=== PATIENT | female | born 1940 | race African-American/Black ===

== ENCOUNTER 2017-01-07 12:53 | Inpatient (IN) ==
[2017-01-07] MEDS ORDERED: GLUCAGON 1 MG VIAL IM PRN (12:55)
[2017-01-07] MEDS ORDERED: DEXTROSE 50% 25 GM/50 ML VIAL IV PRN (12:55)
--- NOTE | 2017-01-07 13:04 | Pulmonology History & Physical ---
History of Present Illness Chief complaint: Abnormal MRI; CVA History of present illness: Asher Kinney, ANP-BC, GNP-BC, acting as scribe for Dr. Delvin Marshall Mrs. Sweeney is a 76 year old black female who was seen [facility] by Dr. Lundberg. The patient has had more dizziness and gait instability. He scheduled her for an MRI of the brain this morning and it showed findings most suggestive of a recent infarct involving the left anterior cerebellar hemisphere and left cerebellar peduncle. There was a minimal amount of enhancement present in the cerebellar component. With these findings, Dr. Lundberg contacted Dr. Marshall for hospitalization. The patient denies any increased shortness of breath or dyspnea on exertion. She does report gait instability which is been worsening over the past couple of weeks with recurrent falls. She denies any cardiac angina or palpitations. No reported dysphasia or reflux. No bleeding from any site. No change in bowel or bladder habits. All other systems were reviewed and were negative. Allergies: None Home medications: See list Past medical history: Jeb's hospitalization 11/01/2016 through 11/02/2016 under the care of the hospitalist. Patient was admitted with slurred speech. Jeb's hospitalization 02/27/2012 through 03/01/[address] Feliciano secondary to an acute TIA, dizziness, and findings of old stroke in 2 arterial hernandez. Jeb's hospitalization 11/19/2005 through 11/21/2005 under the care of Dr. Solano for dysphasia, diabetes mellitus which was uncontrolled, COPD, and hyperlipidemia. History is also notable for hypertension, history of acute NC, history of CVA, and diabetes mellitus. Family history: Positive for an unknown type of cancer in her father, colon cancer in her son, and her mother was an alcoholic. Social history: The patient is . Her 's name is Arvind. She is a lifetime non-smoker. She does not use alcohol. Past procedures: MRI of the brain done 01/07/2017 showed findings suggestive of a recent infarct involving the left anterior cerebellar hemisphere and left cerebellar peduncle. There is minimal amount of enhancement present in the cerebellar component likely due to reperfusion, however, subsequent exam was recommended in several weeks to make sure the enhancement resolved to exclude an underlying mass. There is an old infarct in the posterior aspect of the left cerebellar hemisphere, moderate changes of chronic microvascular ischemia in the periventricular white matter, and left lateral CSF collection likely an arachnoid cyst. CT of the head done 12/25/2016 showed no acute intracranial abnormality. MRI of the brain done 11/02/2016 showed no acute intracranial pathology. There was a 20 mm probable arachnoid cyst overlying the left posterior parietal vertex that was extra-axial and benign. There were also 2 small old lacunar infarcts of the left cerebellar hemisphere, chronic small vessel ischemic changes in the deep white matter, and generalized atrophy. CT of the brain done 11/01/2016 showed no acute intracranial pathology. Generalized atrophy and changes consistent with microvascular disease. No change when compared to CT done 06/10/2016. CT of the brain done 06/10/2016 showed no acute intracranial pathology. When compared to scans done 02/27/2012, there is stable generalized atrophy and relatively extensive chronic small vessel ischemic change. The encephalomalacia of the left parietal vertex was unchanged. There is mild frontal sinus disease. Carotid Dopplers done 2015 showed no hemodynamically significant stenosis of either ICA origin. Carotid ultrasound done 02/27/2012 showed slightly echolucent plaque within the left carotid artery bulb. There is no associated elevated peak systolic velocity. Less than 50% stenosis was estimated bilaterally. CT of the brain done 02/27/2012 showed stable interval appearance of the brain when compared to study done 02/01/2008. There is no evidence of acute intracranial pathology, but paranasal sinus disease was noted. Carotid ultrasounds done 02/01/2008 showed mild amount of plaque with less than 50% stenosis bilaterally. CT of abdomen and pelvis done 02/01/2008 showed minuscule amount of fluid in the lower pelvis and incomplete bowel opacification without a focal abnormality. CT of the brain done 02/01/2008 showed small chronic cortical infarct in the left parietal lobe and mild paranasal sinus disease. X-ray of the cervical spine done 2007 showed minimal to moderate degenerative changes in the cervical spine with associated bilateral foraminal stenosis. No definite fracture dislocation was identified. CT of the lower extremities done 11/10/1997 showed an ill-defined asymmetric soft tissue abnormality in the left lower leg. This projected just medial to the upper tibia. There was no abnormal enhancement or associated osseous pathology. There did not appear to be any involvement of the musculature and was felt to represent a probable benign soft tissue finding as could be seen with an infectious process and/or resolving hematoma rather than a tumor. Laboratory: White count is 8249.8% segs, 39.5% lymphs, and 6.0% monos; H&H 11.9/ 35.9 with normal indices and normal red blood cell distribution with; platelet count 191,000; creatinine 1.00, BUN 19, sodium 137, potassium 3.9, magnesium 1.8 ; liver function tests within normal limits; calcium 9.9, albumin 3.4, total protein 7.1; TSH and free T4 normal at 2.510 and 1.41 respectively Home Medications Medication Instructions Recorded Confirmed Type Amlodipine Besylate 5 mg PO DAILY 11/01/16 01/07/17 History Aspirin [Aspirin EC] 81 mg PO DAILY 11/01/16 01/07/17 History glipiZIDE [Glipizide] 10 mg PO BID 11/01/16 01/07/17 History Glimepiride [Glimepiride] 4 mg PO DAILY 12/25/16 01/07/17 History Losartan/Hydrochlorothiazide 1 tablet PO DAILY 12/25/16 01/07/17 History [Losartan-Hctz 50-12.5 mg Tab] Meclizine [Antivert] 25 mg PO TID #14 tablet 12/25/16 01/07/17 Rx Amoxicillin Cap/Tab 875 mg PO Q12HR 01/07/17 01/07/17 History Methocarbamol Tab [Robaxin Tab] 750 mg PO TID 01/07/17 01/07/17 History Promethazine Tab [Phenergan Tab] 25 mg PO Q4H 01/07/17 01/07/17 History Allergies Allergy/AdvReac Type Severity Reaction Status Date / Time No Known Allergies Allergy Unverified 11/01/16 19:10 Medical,Surgical,& Family Hx - Medical History Cardio: History of: Hypertension, NC Neurology: History of: Cerebrovascular Accident Endocrine: History of: Diabetes Mellitus (NIDDM) - Surgical History Orthopedic Surgeries: Surgical HX of;: Orthopedic Surgery - Family History Family History: Reports;: Family Cancer (Father, son with colon cancer), Family Psychiatric Problems (Mother with alcohol abuse) - Social History Smoking Status: Never smoker Results - Labs CBC & BMP: 01/08/17 05:01 01/08/17 05:01 Exam (Pulmonay) H&P - Constitutional Exam: Psych: Oriented x 3; a pleasant and cooperative patient HEENT: Pupils, irises, sclera, conjunctiva, and eyelids are normal. The face is symmetrical without rash or masses. Lips, tongue, buccal mucosa, soft and hard palates, and pharynx are WNL Neck: Symmetrical. Thyroid was not palpated. Lymphatics: No submandibular, cervical, or supraclavicular adenopathy Chest: Symmetrical without wheeze, rhonchi or rales Breasts: Deferred CV: Regular without murmur, rub, or gallop Arterial: Carotids with a fair upstroke. There is no bruit. Upper extremity pulses are palpable. Lower extremity pulses are non-palpable, but I see no evidence of ischemia. Venous: Exam of the neck, upper, and lower extremities is normal Abd: No appreciable organomegaly, masses, tenderness, or bruit; Bowel sounds are positive 4; The aorta was not palpated /Rectal: Deferred Extremities: No clubbing, cyanosis, edema, or obvious DVT Skin: No cancerous or infectious lesions of the exposed, examined skin; the perineal area was not examined M/S: Age appropriate loss of the normal curvature of the cervical, thoracic, and lumbar spine Neurological: No focal weakness noted, but the patient is unsteady with her gait The remainder of the exam was noncontributory. Impression: #1: Acute CVA of the left anterior cerebellar distribution with associated gait abnormality #2: Diabetes mellitus #3: Hypertension #4: History of old CVA #5: History of acute NC #6: See past history Plan: #1: Admit to inpatient #2: Consult Dr. Caro #3: Fasting lipid profile in the morning #4: Check hemoglobin A1c #5: Consult physical therapy and Occupational Therapy #6: Echocardiogram #7: See orders
--- NOTE | 2017-01-07 14:02 | EKG Report ---
Stationary ECG Study [facility] Test Date: 01/07/2017 2:01:20 PM Pat Name: SHAYNE NORRIS Department: Room: 544 Gender: F Supervisor [employer]: : 1940 Requested by: Asher Kinney Order Number: [id number] Reading MD: ARIANNA CAMARA Intervals Union Rate: 85 P: 81 NH: 162 QRS: 10 QRSD: 96 T: -8 QT: 350 QTc: 393 Interpretive Statements (LAURA CAMARA TO INTERP) SINUS RHYTHM Normal axis. Nonspecific STs and T's. No acute changes. Electronically Signed On 01-15-17 09:32:37 CDT by ARIANNA CAMARA [email or web address]
--- NOTE | 2017-01-07 14:30 | Neurology Consult Note ---
History of Present Illness History of present illness: Ms. Sweeney is a 76 year old right-handed -[place] lady with past medical history significant for diabetes, hypertension admitted to the hospital with increasing gait difficulties and balance problem. This is been going on for last 2 weeks or so. Never had any similar symptoms before. She reported she can swallow okay and his speech is fluent. However she just cannot balance herself. She is falling a lot. She saw Dr. Lundberg as an outpatient who ordered an MRI of the brain which revealed subacute to acute left anterior cerebellar distribution infarct. Patient was taking aspirin at home. Home Medications Medication Instructions Recorded Confirmed Type Amlodipine Besylate 5 mg PO DAILY 11/01/16 12/25/16 History Aspirin [Aspirin EC] 81 mg PO DAILY 11/01/16 12/25/16 History glipiZIDE [Glipizide] 10 mg PO BID 11/01/16 12/25/16 History Glimepiride [Glimepiride] 4 mg PO DAILY 12/25/16 12/25/16 History Losartan/Hydrochlorothiazide 1 tablet PO DAILY 12/25/16 12/25/16 History [Losartan-Hctz 50-12.5 mg Tab] Meclizine [Antivert] 25 mg PO TID #14 tablet 12/25/16 Rx Allergies Allergy/AdvReac Type Severity Reaction Status Date / Time No Known Allergies Allergy Unverified 11/01/16 19:10 12 point system: reviewed and no additional remarkable complaints except as stated Medical,Surgical,& Family Hx - Medical History Cardio: History of: Hypertension, ID Neurology: History of: Cerebrovascular Accident Endocrine: History of: Diabetes Mellitus (NIDDM) - Surgical History Orthopedic Surgeries: Surgical HX of;: Orthopedic Surgery - Family History Family History: Reports;: Family Cancer (Father, son with colon cancer), Family Psychiatric Problems (Mother with alcohol abuse) - Social History Smoking Status: Never smoker Frequency of Alcohol Use: None Type of Drug Use: None Exam - Constitutional Vitals: Period Temp Pulse Resp BP Sys/Maurer Pulse Ox Last 24 Hr 98.1 F 83 18 152/84 96 Exam: GENERAL: Patient is in no acute distress. NECK: Neck is supple. There is no JVD. No carotid bruits present. No thyroid masses. CVS: First and second heart sounds are normal. There is no S3 present. Regular rate and rhythm. RESPIRATORY: Lungs are clear to auscultation without any rales or rhonchi. ABDOMEN: Soft and non-tender. Bowel sounds are present. There is no hepatosplenomegaly. EXT: There is no palpable edema. Peripheral pulses are present. Skin: No rashes Central Nervous system: General: Alert, awake and Oriented x 3 Speech: Fluent Comprehension: Intact and normal Facial expressions: Normal Cranial Nerves: CN1/Olfactory: Normal CN II/ Optic: Normal, Visual Wayne unreliable CN III, and : NATALIE & EOMI CN V: Normal & intact CN VII: face is symmetric CNVIII: Normal CN XI/X/XI/XII: Intact and Normal Motor: Bulk and Tone is normal. Strength in the right 3-4/5 Strength in the left 3-4/5 Sensory: Grossly intact for all the modalities of PP, LT and temp sense Reflexes: 1+ and symmetrical Cerebellar function: Dysmetria upon finger to nose and heel to pathak testing in the left. Toes: Equivocal Gait: Markedly ataxic gait requiring max assist at this time Assessment and Plan (1) Acute CVA (cerebrovascular accident) Status: Acute Assessment and plan: Stop aspirin. Eliquis 5 mg p.o. twice daily Echocardiogram Lipid profile MRA [facility] Consult PT and OT Consult TMR Current Visit: Yes
--- NOTE | 2017-01-07 15:03 | XRay Report ---
2 view chest. Indication: Shortness of breath. The heart is normal in size. There is mild stable uncoiling of the thoracic aorta. 2 calcified granulomas are seen in the left upper lobe. There is atelectasis present at the left lung base. No consolidation, pneumothorax, or pleural effusion. Degenerative changes are present within the spinal column. There is gaseous distention of bowel with scattered air-fluid levels. Impression: Left basilar atelectasis. Gaseous distention of bowel. PROCEDURE INTERPRETED AT [facility] [place] DEPARTMENT OF RADIOLOGY Final Report Signed by: Dr. Juliane Morrissey
[2017-01-07 15:27] LABS: Basophils % 0.1 % (0.0-0.8); Eosinophils # 0.4 10*3/uL (0.0-0.87); Eosinophils % 4.4 % (0.00-10.9); Hematocrit 35.9 VOL% (35.7-47.0); Hemoglobin 11.9 GM/DL (12.0-16.0); Immature Granulocytes % 0.2 %; Immature Granulocytes Absolute 0.02 #; Lymphocytes # 3.2 10*3/uL (1.4-4.0); Lymphocytes % 39.5 % (21.3-54.2); Mean Corpuscular HGB Conc 33.1 GM/DL (32-36); Mean Corpuscular Hemoglobin 31 PG (27-34); Mean Corpuscular Volume 92.5 FL (87-102); Mean Platelet Volume 11.9 FL (9.6-12.0); Monocytes # 0.5 10*3/uL (0.11-0.8); Neutrophils # 4.1 10*3/uL (1.4-7.4); Neutrophils % 49.8 % (38.7-73.9); Platelet Count 181 T/CUMM (130-400); Red Blood Count 3.88 MC/CUMM (3.8-5.5); Red Cell Distribution Width 12.9 % (9.3-17.3); White Blood Count 8.2 T/CUMM (4-12)
--- NOTE | 2017-01-07 15:39 | Ultrasound Report ---
Exam: US carotid duplex BI Date: 01/07/2017 12:59 PM Indication: CVA Comparison 06/10/2016 Findings: Grayscale color flow analysis and spectral analysis imaging was performed with image stored and captured. Right Flow velocities centimeters per second Common carotid artery: 59 Proximal ICA: 42 Distal ICA: 54 External carotid artery: 59 Vertebral artery: 65 ICA/CCA ratio: 0.9 Measurements in millimeters Distal ICA: 4.6 Left: Flow velocities centimeters per second Common carotid artery: 75 Proximal ICA: 29 Distal ICA: 36 External carotid artery: 59 Vertebral artery: 56 ICA/CCA ratio: 0.5 Measurements in millimeters Distal ICA: 5.8 Normal color flow present. Mild intimal hyperplasia and minimal plaque present with triphasic waveforms present. No spectral broadening Impression: 1. 0-15% stenosis bilaterally Today studies were performed utilizing indirect NASCET criteria The ultrasound images were stored and captured PROCEDURE INTERPRETED AT [facility] DEPARTMENT OF RADIOLOGY Final Report Signed by: Dr. Delvin Malin
[2017-01-07 16:01] LABS: Alanine Aminotransferase 13 U/L (13-56); Albumin 3.4 G/DL (3.4-5.0); Alkaline Phosphatase 69 U/L (45-117); Aspartate Amino Transferase 10 U/L (0-37); Bilirubin,Total < 0.39 MG/DL (0.2-1.0); Blood Urea Nitrogen 19 MG/DL (7-18); Calcium 9.9 MG/DL (8.5-10.1); Glucose 181 MG/DL (74-106); Magnesium 1.8 MG/DL (1.8-2.4); Osmolality,Calculated 279.8 MOS/KG (273-304); Potassium 3.9 MMOL/L (3.5-5.1); Sodium 137 MMOL/L (136-145); Total Protein 7.1 G/DL (6.4-8.3)
--- NOTE | 2017-01-07 16:35 | Magnetic Resonance Report ---
Exam: MR angio head wo brandon (MARIA INES) Date: 01/07/2017 2:32 PM Indication: CVA Comparison: MRI brain earlier today Technical 1.5 Linda 3-D slab imaging without gadolinium enhancement. Findings: The posterior cerebral P1 and P2 segments and the anterior cerebral A1 and A2 segments are demonstrated without abnormality the middle cerebral M1 and M2 bifurcation trifurcation regions are intact. The internal carotid arteries reveal some mild dolichoectasia. The right and left vertebral arteries are demonstrated with mild narrowing of the distal left vertebral. The posterior communicating arteries are not well demonstrated. The anterior communicating artery is also poorly seen Impression: 1. No high-grade stenosis or occlusion or aneurysm clearly demonstrated on today's study. 2. Mild dolichoectasia PROCEDURE INTERPRETED AT [facility] DEPARTMENT OF RADIOLOGY Final Report Signed by: Dr. Delvin Malin
[2017-01-07] MEDS ORDERED: ACETAMINOPHEN 325 MG TABLET PO PRN (16:52)
[2017-01-07] MEDS: DEXAMETHASONE 4 MG/1 ML VIAL IV SCH ×2 (17:15→22:57)
[2017-01-07] MEDS: SODIUM CHLORIDE 0.9% 1,000 ML IV SCH (17:15)
[2017-01-07] MEDS: INSULIN REGULAR 100 UNIT/ML SUBCUT SCH ×2 (18:35→22:57)
[2017-01-07] MEDS: APIXABAN 2.5 MG TABLET PO SCH (22:57)
[2017-01-08] MEDS: INSULIN REGULAR 100 UNIT/ML SUBCUT SCH ×5 (01:24→20:48)
[2017-01-08 05:18] LABS: Basophils % 0.1 % (0.0-0.8); Eosinophils % 0.1 % (0.00-10.9); Hematocrit 33.7 VOL% (35.7-47.0); Hemoglobin 11.8 GM/DL (12.0-16.0); Immature Granulocytes % 0.4 %; Immature Granulocytes Absolute 0.03 #; Lymphocytes % 13.6 % (21.3-54.2); Mean Corpuscular Hemoglobin 31 PG (27-34); Mean Corpuscular Volume 89.4 FL (87-102); Mean Platelet Volume 11.1 FL (9.6-12.0); Monocytes # 0.1 10*3/uL (0.11-0.8); Monocytes % 1.4 % (1.7-12.7); Neutrophils # 6.2 10*3/uL (1.4-7.4); Neutrophils % 84.4 % (38.7-73.9); Platelet Count 180 T/CUMM (130-400); Red Blood Count 3.77 MC/CUMM (3.8-5.5); Red Cell Distribution Width 12.4 % (9.3-17.3); White Blood Count 7.4 T/CUMM (4-12)
[2017-01-08 05:51] LABS: Calcium 9.4 MG/DL (8.5-10.1); Magnesium 1.7 MG/DL (1.8-2.4); Potassium 4.5 MMOL/L (3.5-5.1); Risk Ratio 4.45; VLDL CHOLESTEROL 10.8 MG/DL
[2017-01-08] MEDS: DEXAMETHASONE 4 MG/1 ML VIAL IV SCH (06:40)
--- NOTE | 2017-01-08 08:59 | Neurology Progress Note ---
Neurology - PN : Subjective Interval history: Patient seems to be doing okay. Feeling better. He still cannot walk. Swallowing is good. Vision is okay. MRA looks okay. Cholesterol is 316. Exam (Progress Note) - Constitutional Vitals: Period Temp Pulse Resp BP Sys/Maurer Pulse Ox Last 24 Hr 97 F-98.1 F 83-103 16-20 128-174/73-95 96-98 Exam: GENERAL: Patient is in no acute distress. NECK: Neck is supple. There is no JVD. No carotid bruits present. No thyroid masses. CVS: First and second heart sounds are normal. There is no S3 present. Regular rate and rhythm. RESPIRATORY: Lungs are clear to auscultation without any rales or rhonchi. ABDOMEN: Soft and non-tender. Bowel sounds are present. There is no hepatosplenomegaly. EXT: There is no palpable edema. Peripheral pulses are present. Skin: No rashes Central Nervous system: General: Alert, awake and Oriented x 3 Speech: Fluent Comprehension: Intact and normal Facial expressions: Normal Cranial Nerves: CN1/Olfactory: Normal CN II/ Optic: Normal, Visual Wayne unreliable CN III, and : NATALIE & EOMI CN V: Normal & intact CN VII: face is symmetric CNVIII: Normal CN XI/X/XI/XII: Intact and Normal Motor: Bulk and Tone is normal. Strength in the right 3-4/5 Strength in the left 3-4/5 Sensory: Grossly intact for all the modalities of PP, LT and temp sense Reflexes: 1+ and symmetrical Cerebellar function: Dysmetria upon finger to nose and heel to pathak testing in the left. Toes: Equivocal Gait: Markedly ataxic gait requiring max assist at this time Results - Labs CBC & BMP: 01/08/17 05:01 01/08/17 05:01 Assessment and Plan (1) Acute CVA (cerebrovascular accident) Status: Acute Assessment and plan: Continue Eliquis 2.5 mg twice Add Lipitor 20 mg p.o. daily Add Prozac 20 mg p.o. daily Consult TMR for possible to possible tomorrow admission Current Visit: Yes Quality Measures - Stroke Presenting Symptoms: Left hemiparesis Symptom Onset Unknown: Yes
[2017-01-08] MEDS: APIXABAN 2.5 MG TABLET PO SCH ×2 (10:12→20:48)
[2017-01-08] MEDS: FLUoxetine 20 MG CAPSULE PO SCH (10:12)
--- NOTE | 2017-01-08 10:44 | Pulmonology Progress Note ---
Pulmonary - PN: Subj Interval history: Asher Kinney, ANP-BC, GNP-BC, acting as scribe for Dr. Delvin Marshall Mrs. Sweeney is a 76-year-old -Bhut[place] female who was admitted from [facility] 01[facility]07/2017. At the time of admission, our impressions were: #1: Acute CVA of the left anterior cerebellar distribution with associated gait abnormality #2: Diabetes mellitus #3: Hypertension #4: History of old CVA #5: History of acute CT #6: See past history 01/08/2017. The patient's was not in the room today on rounds. The patient states that she still feels generally unwell, but stable. She still having gait instability. She is planned for physical therapy evaluation and occupational therapy evaluation today. She has been seen in neurology consultation by Dr. Caro. He started the patient on Eliquis yesterday. Echocardiogram is still pending. Carotid ultrasound on 01/07/2017 showed 0-15% stenosis bilaterally. MRA of the head done 01/07/2017 showed no high-grade stenosis or occlusion or aneurysm. There was mild dolichoectasia. Medications have been reviewed. Dr. Caro has also started Lipitor 20 mg daily and Prozac 20 mg daily. Labs have been reviewed. White count is 7400 with 84.4% segs; H&H 11.8/33.9; platelet count 190,000; creatinine 1.30, BUN 27, electrolytes are normal, magnesium 1.7; fasting lipid profile showed a total cholesterol of 316, LDL 210 , HDL 71, triglycerides 54; sed rate was 50; hemoglobin A1c 8.1%. Exam (Progress Note) - Constitutional Vitals: Period Temp Pulse Resp BP Sys/Maurer Pulse Ox Last 24 Hr 97 F-98.1 F 83-103 16-20 104-174/60-95 96-98 Exam: Chest is clear Heart no gallop Abdomen is nontender and nondistended; bowel sounds are positive 4 Extremities with nothing to suggest acute deep venous thrombophlebitis Psychiatric oriented 3 Neurologic unchanged Plan: Her diabetes mellitus is under poor control so we have consulted diabetic education and dietary. Dietary will also speak with the patient regarding her hyperlipidemia. Apparently, in the past she has been on pravastatin but has been off of it for quite some time. Lipitor was started today. Follow-up echocardiogram when available. Dr. Caro has consult to [facility] and we agree with this. See orders. Results - Labs CBC & BMP: 01/08/17 05:01 01/08/17 05:01
[2017-01-08] MEDS: SODIUM CHLORIDE 0.9% 1,000 ML IV SCH ×2 (14:28→20:51)
--- NOTE | 2017-01-08 16:38 | ECHO Report ---
Ana Sweeney Exam Date: 01/08/2017 08:44 Referring Physician: Technologist: vishal Galeana ARDMS, RVT Age: 76 Ht (in): 65 Wt (lb): 157 Gender: F Exam Location: [facility] Echo Indications: Essential (primary) hypertension, TN, CVA, NIDDM BP: 104 / 60 HR: 86 Rhythm: Sinus Technical Quality: Fair IMPRESSIONS 1. Left ventricle is normal size and systolic function with ejection fraction 55+%. There is mild to moderate concentric left ventricular hypertrophy. Mild diastolic dysfunction. 2. Other cardiac chambers are normal size. 3. Thickened sclerotic mitral valve without regurgitation or stenosis. 4. Tricuspid sclerotic aortic valve without regurgitation or significant stenosis. 5. Right-sided valves are normal. 6. There is no gross intracardiac source for emboli noted on this study. MEASUREMENTS (Male / Female) Normal Values 2D ECHO LV Diastolic Diameter PLAX 3.0 cm 4.2 - 5.9 / 3.9 - 5.3 cm LV Systolic Diameter PLAX 1.8 cm LV Fractional Shortening PLAX 41.9 % IVS Diastolic Thickness 1.4 cm 0.6 - 1.0 / 0.6 - 0.9 cm LVPW Diastolic Thickness 1.4 cm 0.6 - 1.0 / 0.6 - 0.9 cm RV Internal Dim ED PLAX 2.6 cm Aortic Root Diameter 3.4 cm LA Systolic Diameter LX 3.2 cm 3.0 - 4.0 / 2.7 - 3.8 cm FINDINGS Left Ventricle Normal left ventricular is normal size cavity and somewhat hyperdynamic. The ejection fraction is 65+%. There is at least mild to moderate concentric left ventricular hypertrophy. There is evidence for probably mild diastolic dysfunction. Right Ventricle The right ventricle is normal in size and function. Right Atrium The right atrium is normal in size. Left Atrium The left atrium is normal in size. Mitral Valve Mitral valve is thickened and sclerotic without significant stenosis or prolapse. There is no mitral regurgitation. Aortic Valve Aortic valve is tricuspid structure and sclerotic without regurgitation or significant stenosis. Tricuspid Valve Morphologically normal tricuspid valve without significant stenosis or regurgitation. Pulmonary artery systolic pressure is normal. Pulmonic Valve Morphologically normal pulmonic valve. Trace pulmonary valve regurgitation. Pericardium Normal pericardium without effusion. Aorta Normal ascending aorta dimension. Roni Callahan MD (Electronically Signed) Final Date: 08 January 2017 16:37
[2017-01-08 17:41] LABS: Apearance,Urine CLEAR (Clear); Bilirubin,Urine Negative (Negative); Blood, Urine Negative (Negative); Glucose,Urine (UA) >=500 mg/dL (Negative); Hyaline Casts,Urine 1 /LPF (0-3); Ketones,Urine Negative (Negative); Mucus,Urine Occasional /LPF (Occasional); Nitrite,Urine Negative (Negative); Protein,Urine Negative; RBC,Urine <1 /HPF (0-4); Squamous Epithelial Cell,Urine Occasional /HPF (0-10); Urine Color Straw (Yellow); Urine Specific Gravity 1.015 (1.001-1.035); Urine Urobilinogen < 2.0 EU/DL (0.2-1.0); WBC,Urine 1 /HPF (0-6)
[2017-01-08] MEDS ORDERED: ATORVASTATIN 20 MG TABLET PO SCH (21:00)
--- NOTE | 2017-01-09 08:54 | Neurology Progress Note ---
Neurology - PN : Subjective Interval history: Patient seems to be doing better. No new problems reported. Is still have some gait difficulty. She has markedly ataxic gait. Awaiting rehab placement Exam (Progress Note) - Constitutional Vitals: Period Temp Pulse Resp BP Sys/Maurer Pulse Ox Last 24 Hr 96.7 F-98.7 F 72-101 16-20 104-162/55-87 97-99 Exam: GENERAL: Patient is in no acute distress. NECK: Neck is supple. There is no JVD. No carotid bruits present. No thyroid masses. CVS: First and second heart sounds are normal. There is no S3 present. Regular rate and rhythm. RESPIRATORY: Lungs are clear to auscultation without any rales or rhonchi. ABDOMEN: Soft and non-tender. Bowel sounds are present. There is no hepatosplenomegaly. EXT: There is no palpable edema. Peripheral pulses are present. Skin: No rashes Central Nervous system: General: Alert, awake and Oriented x 3 Speech: Fluent Comprehension: Intact and normal Facial expressions: Normal Cranial Nerves: CN1/Olfactory: Normal CN II/ Optic: Normal, Visual Wayne unreliable CN III, and : NATALIE & EOMI CN V: Normal & intact CN VII: face is symmetric CNVIII: Normal CN XI/X/XI/XII: Intact and Normal Motor: Bulk and Tone is normal. Strength in the right 3-4/5 Strength in the left 3-4/5 Sensory: Grossly intact for all the modalities of PP, LT and temp sense Reflexes: 1+ and symmetrical Cerebellar function: Dysmetria upon finger to nose and heel to pathak testing in the left. Toes: Equivocal Gait: Markedly ataxic gait requiring max assist at this time Results - Labs CBC & BMP: 01/08/17 05:01 01/08/17 05:01 Assessment and Plan (1) Acute CVA (cerebrovascular accident) Status: Acute Assessment and plan: Continue present management. Okay to go to [facility] when ok with insurance. Current Visit: Yes Quality Measures - Stroke Presenting Symptoms: Left hemiparesis Symptom Onset Unknown: Yes Specialty Discharge - Follow Up or Referrals
--- NOTE | 2017-01-09 10:00 | Pulmonology Progress Note ---
Pulmonary - PN: Subj Interval history: Asher Kinney, ANP-BC, GNP-BC, acting as scribe for Dr. Delvin Marshall Mrs. Sweeney is a 76-year-old -Swiss female who [facility]. 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 The patient's was not in the room today on rounds. The patient states that she still feels generally unwell, but stable. She still having gait instability. She is planned for physical therapy evaluation and occupational therapy evaluation today. She has been seen in neurology consultation by Dr. Caro. He started the patient on Eliquis yesterday. Echocardiogram is still pending. Carotid ultrasound on 01/07/2017 showed 0-15% stenosis bilaterally. MRA of the head done 01/07/2017 showed no high-grade stenosis or occlusion or aneurysm. There was mild dolichoectasia. 01/09/2017. The patient was seen today along with her director of occupational therapy. We have been waiting on the patient's insurance prior approval to discharge to [facility]. I just received report that the patient has been accepted for transfer today. She will continue to be followed from a neurology consult there by Dr. Caro. Overall, medically the patient is doing well. She has been seen in dietary and diabetic nursing education. Echocardiogram done 01/08/[address] Callahan showed an ejection fraction of 55+%, mild to moderate concentric left ventricular hypertrophy, mild diastolic dysfunction , thickened sclerotic mitral valve without regurgitation or stenosis, tricuspid sclerotic aortic valve without regurgitation or significant stenosis, and no gross intracardiac source for emboli. Medications have been reviewed. Dr. Caro has also started Lipitor 20 mg daily and Prozac 20 mg daily. We made no changes to her medications today. Labs have been reviewed. Urinalysis yesterday showed no evidence of infection. Exam (Progress Note) - Constitutional Vitals: Period Temp Pulse Resp BP Sys/Maurer Pulse Ox Last 24 Hr 96.7 F-98.7 F 72-101 16-20 104-162/55-87 97-99 Exam: Chest is clear Heart no gallop Abdomen is nontender and nondistended; bowel sounds are positive 4 Extremities with nothing to suggest acute deep venous thrombophlebitis Psychiatric oriented 3 Neurologic unchanged Plan: She is medically stable to discharge to [facility] today since her insurance has finally approved this. Please see the discharge summary for more information. Results - Labs CBC & BMP: 01/08/17 05:01 01/08/17 05:01 Specialty Discharge - Follow Up or Referrals
--- NOTE | 2017-01-09 10:03 | Discharge Summary ---
Hospital Course - Hospital Course Hospital Course: Asher Kinney, ANP-BC, GNP-BC, acting as scribe for Dr. Delvin Marshall Mrs. Sweeney is a 76 year old black female who was seen today [facility] by Dr. Lundberg. The patient has had more dizziness and gait instability. He scheduled her for an MRI of the brain this morning and it showed findings most suggestive of a recent infarct involving the left anterior cerebellar hemisphere and left cerebellar peduncle. There was a minimal amount of enhancement present in the cerebellar component. With these findings, Dr. Lundberg contacted Dr. Marshall for hospitalization. She has been seen in neurology consultation by Dr. Caro. MRA of the head done 01/07/2017 showed no high-grade stenosis or occlusion or aneurysm. There was mild dolichoectasia. Carotid ultrasound on 01/07/2017 showed 0-15% stenosis bilaterally. Echocardiogram done 01/08/[address] Callahan showed an ejection fraction of 55+%, mild to moderate concentric left ventricular hypertrophy, mild diastolic dysfunction, thickened sclerotic mitral valve without regurgitation or stenosis, tricuspid and sclerotic aortic valve without regurgitation or significant stenosis, and no gross intracardiac source for emboli. Fasting lipid profile showed a total cholesterol of 316, LDL 210, HDL 71, triglycerides 54. She was started on Lipitor 20 mg daily for hyperlipidemia. At admission, Dr. Caro discontinued her aspirin and started Eliquis. He is also started the patient on Prozac 20 mg daily. Hemoglobin A1c drawn at admission was 8.1% consistent with poorly controlled diabetes mellitus. She has been seen in diabetic nursing and dietary consultation. At discharge, white count is 7400 with 84.4% segs, 13.6% lymphs, and 1.4% monos ; H&H 11.8/33.7 with normal indices and normal red blood cell distribution with ; platelet count 180,000; creatinine 1.30, BUN 27, sodium 136, potassium 4.5, magnesium 1.7; liver function tests within normal limits; sed rate 50; TSH and free T4 were normal at 2.510 and 1.41 respectively; calcium 9.4, albumin 3.4, total protein 7.1; liver function tests within normal limits. Urinalysis showed no evidence of infection. For more information regarding Mrs. Sweeney's past medical history, family history, social history, past procedures, admit labs, admit x-ray and admit exam , please see the admission note dated 01/07/2017. 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 Poorly controlled as evidenced by a hemoglobin A1c of 8.1%. #3: Hypertension #4: History of old CVA #5: History of acute SC #6: Hyperlipidemia #7: See past history Plan: Tylenol 650 mg every 4 hours as needed, Eliquis 2.5 mg twice daily, Lipitor 20 mg at bedtime, Prozac 20 mg daily, continue sliding scale insulin, glimepiride 4 mg daily, glipizide 10 mg twice daily, losartan HCT 50/12.51 daily , and Norvasc 5 mg daily. Her insurance is approved transfer to [facility]. She will be under the care of Dr. Caro. At discharge, she needs her referred back to Dr. Lundberg who is her primary care physician. Specialty Discharge - Follow Up or Referrals Follow up with: Krishna Lundberg MD [Physician] - (Approximately 1-2 weeks after discharge from [facility]) Discharge Plan - Discharge Data Disposition: Disch/[facility] Condition at Discharge: Stable Discharge Diet: diabetic diet, heart healthy Activity: as per physical therapy - Discharge Medications New Apixaban [Eliquis] 2.5 mg PO BID tablet Atorvastatin [Lipitor] 20 mg PO BEDTIME tablet FLUoxetine [PROzac] 20 mg PO DAILY capsule Glucagon 1 mg IM PRN PRN vial PRN Reason: Hypoglycemia w/o IV access Insulin Regular [HumuLIN R] See Protocol SUBCUT ACHS unit Acetaminophen Tab [Tylenol Tab] 650 mg PO Q4H PRN tablet PRN Reason: Fever, Headache, Mild Pain Continue glipiZIDE [Glipizide] 10 mg PO BID Amlodipine Besylate 5 mg PO DAILY Losartan/Hydrochlorothiazide [Losartan-Hctz 50-12.5 mg Tab] 1 tablet PO DAILY Glimepiride 4 mg PO DAILY Discontinued Aspirin [Aspirin EC] 81 mg PO DAILY Meclizine [Antivert] 25 mg PO TID #14 tablet Promethazine Tab [Phenergan Tab] 25 mg PO Q4H Amoxicillin Cap/Tab 875 mg PO Q12HR Methocarbamol Tab [Robaxin Tab] 750 mg PO TID - Follow Up or Referral - Forms/Instructions Instructions: Ischemic Stroke (DC), Self Care Measures After a Stroke (DC) Exam - Constitutional Vitals: Period Temp Pulse Resp BP Sys/Maurer Pulse Ox Last 24 Hr 96.7 F-98.7 F 72-101 16-20 104-162/55-87 97-99 Discharge Results Labs on day of discharge: Labs from last 24 hours 01/09/17 01/08/17 01/08/17 07:39 Unknown 19:40 POC Glucose 133 H 371 H Urine Color Straw Urine Appearance Clear Urine pH 5.0 Ur Specific [place] 1.015 Urine Protein Negative Urine Glucose (UA) >=500 Urine Ketones Negative Urine Blood Negative Urine Nitrate Negative Urine Bilirubin Negative Urine Urobilinogen < 2.0 H Urine Leukocytes Negative Urine RBC <1 Urine WBC 1 Ur Squamous Epith Cells Occasional Hyaline Casts 1 Urine Mucus Occasional Ur Culture Indicated? Not indicated 01/08/17 01/08/17 16:37 11:23 POC Glucose 328 H 372 H Urine Color Urine Appearance Urine pH Ur Specific [place] Urine Protein Urine Glucose (UA) Urine Ketones Urine Blood Urine Nitrate Urine Bilirubin Urine Urobilinogen Urine Leukocytes Urine RBC Urine WBC Ur Squamous Epith Cells Hyaline Casts Urine Mucus Ur Culture Indicated? DS: Provider Date of admission: 01/07/17 13:26 Primary care physician: Neymar Damian MD Attending physician on admission: Delvin Marshall MD Consults: 01/07/17 12:57 Consult to Physical Therapy [CONS] Routine Reason for Physical Therapy: Weakness Evaluate and Treat 01/07/17 12:58 Consult to Occupational Therapy [CONS] Routine Reason for Occupational Therapy: Weakness Evaluate and Treat Consult to Physician [CONS] Routine Comment: ABN MRI, CVA Consulting Provider: Mike Caro Person Notified: aware Date Notified: 01/07/17 Time Notified: 15:14 01/07/17 14:34 Consult to Case Mgmt/Social Srvs [CONS] Routine Reason for Case Mgmt/Social Srvs: Rehab 01/08/17 10:15 Consult to [facility], Educator [CONS] Routine Reason for [employer]r: Diet Re-education Consult Comment: Acute CVA; HgbA1c 8.1% Consult to Dietitian [CONS] Routine Reason for Dietitian: Dietary Consult Diet Instruction Consult Comment: Acute CVA; Newly diagnosed hyperlipidemia; HgbA1c 8.1% Discharging clinician: CAITLIN Gallo
[2017-01-09] MEDS: FLUoxetine 20 MG CAPSULE PO SCH (10:13)
[2017-01-09] MEDS: APIXABAN 2.5 MG TABLET PO SCH (10:13)
[2017-01-09] MEDS: INSULIN REGULAR 100 UNIT/ML SUBCUT SCH ×2 (10:14→14:21)
[2017-01-09 12:00] VITALS: BP 137/69
== END 2017-01-09 11:45 | DRG 66 ==
LOC: N.5E 13:26
PROVIDERS: ADMIT Internal Medicine Pulmonary Disease; ATTEND Internal Medicine Pulmonary Disease